=== PATIENT | male | born 1980 | race Caucasian/White ===

== ENCOUNTER → 2016-03-22 | Outpatient (REF) | payer OTHER ==
[~2016-03-22] MED LIST: ACET325T38; ASPI-588; BENZ-24 PO; DOXY100T41 PO; IBUP-788 PO; IBUP100T6; LEVO50TA PO
== END ==
LOC: LAB 11:39
PROVIDERS: ATTEND Nurse Practitioner Family
DX: E03.4 Atrophy of thyroid (acquired) (principal)
CPT/HCPCS: 84443

== ENCOUNTER → 2016-06-02 | Outpatient (CLI) | payer OTHER | LOC: RAD 07:02 | PROVIDERS: ATTEND Nurse Practitioner Family | DX: M25.511 Pain in right shoulder (principal) | CPT/HCPCS: 73221 ==